=== PATIENT | male | born 1945 | race Caucasian/White ===

== ENCOUNTER 2017-07-05 14:51 | Emergency (ER) | payer OTHER ==
[~2017-07-05] VITALS: Ht 170.2 cm; Wt 79.5 kg
[2017-07-05 15:17] VITALS: BP 189/88; PULSE 63; RESP 16; TEMP 98.3; O2SAT 98
--- NOTE | 2017-07-05 16:40 | RADRPT ---
EXAM DATE/TIME: 07/05/2017 16:22 [place] COMPARISON: No previous studies available for comparison. INDICATIONS : Left patella pain post fall. MEDICAL HISTORY : None. SURGICAL HISTORY : None. ENCOUNTER: Initial ACUITY: 1 day PAIN SCORE: 7/10 LOCATION: Left knee FINDINGS: Four view examination of the left knee demonstrates no evidence of fracture or dislocation. Bony min eralization is normal. The articular surfaces are intact. The suprapatellar soft tissues have a nor mal configuration. CONCLUSION: Unremarkable examination of the left knee. Tad Pickett MD on July 05, 2017 at 16:38 Board Certified Radiologist. This report was verified electronically.
--- NOTE | 2017-07-05 16:49 | PD ---
HPI Chief Complaint: Fall Time Seen by Provider: 16:10 Travel History International Travel<30 days: No Contact w/Intl Traveler<30days: No Traveled to known affect area: No History of Present Illness HPI This is a 71-year-old male here for evaluation of left knee and right elbow pain after he had a mechanical trip and fall onto the concrete. No head injury or loss of consciousness. Patient is not anticoagulated. He has pain with weightbearing on the left knee and range of motion of the knee. Symptom severity is mild to moderate. Alleviated by rest. He denies headache, visual changes, neck pain, chest pain, shortness breath, abdominal pain, nausea, vomiting, paresthesia or weakness of the extremities. PFSH Past Medical History Arthritis: No Asthma: Yes (asthmatic bronchitis.) Autoimmune Disease: No Blood Disorders: No Anxiety: Yes Depression: Yes Heart Rhythm Problems: No Cancer: No Cardiovascular Problems: Yes (unknown specifics.) High Cholesterol: No Chemotherapy: No Chest Pain: No Congestive Heart Failure: No Cirrhosis: Yes COPD: No Cerebrovascular Accident: Yes (2004) Diabetes: No Diminished Hearing: No Diverticulitis: Yes Endocrine: No GERD: No Glaucoma: No Genitourinary: No Headaches: No Hepatitis: No Hiatal Hernia: No Hypertension: Yes Immune Disorder: No Insomnia: Yes Kidney Stones: No Musculoskeletal: Yes (MASSIVE PAINS ALL OVER BODY.) Neurologic: No Psychiatric: Yes (suicide attempt) Reproductive: No Respiratory: Yes Migraines: No Myocardial Infarction: No Pancreatitis: Yes Radiation Therapy: No Renal Failure: No Seizures: No Sickle Cell Disease: No Sleep Apnea: No Thyroid Disease: No Ulcer: No ?: Not Past Surgical History Abdominal Surgery: No AICD: No Appendectomy: No Cardiac Surgery: No Cholecystectomy: No Ear Surgery: No Endocrine Surgery: No Eye Surgery: No Genitourinary Surgery: No Gynecologic Surgery: No Insulin Pump: No Joint Replacement: No Oral Surgery: Yes Pacemaker: No Thoracic Surgery: No Tonsillectomy: Yes Other Surgery: Yes (Tonsils out when you were 11.) Social History Alcohol Use: No Tobacco Use: No Substance Use: Yes (PAST PSA) Allergies-Medications (Allergen,Severity, Reaction): Coded Allergies: No Known Allergies (Verified Adverse Reaction, Unknown, 07/05/17) Reported Meds & Prescriptions Reported Meds & Active Scripts Active No Active Prescriptions or Reported Medications Review of Systems Except as stated in HPI: all other systems reviewed are Neg General / Constitutional: No: Fever Eyes: No: Visual changes HENT: No: Headaches Cardiovascular: No: Chest Pain or Discomfort Respiratory: No: Shortness of Breath Gastrointestinal: No: Abdominal Pain Genitourinary: No: Dysuria Physical Exam Narrative GENERAL: Alert and well-appearing 71-year-old male SKIN: Warm and dry. No areas of ecchymosis or abrasion. HEAD: Normocephalic. Atraumatic EYES: No injection or drainage. NECK: Supple. No midline spine tenderness. CARDIOVASCULAR: Regular rate and rhythm. No chest wall tenderness RESPIRATORY: Breath sounds equal bilaterally. No accessory muscle use. GASTROINTESTINAL: Abdomen soft, non-tender, nondistended. MUSCULOSKELETAL: No cyanosis, or edema. Left lower extremity: Tenderness to the anterior aspect of the knee. Pain with full flexion. Joint is stable. 2+ distal pulses. Normal sensation. Brisk cap refill. Right upper extremity: The elbow is nontender. He is able to flex and extend the shoulder, elbow, wrist and all fingers. 2+ distal pulses. Normal sensation. Brisk cap refill. BACK: Nontender without obvious deformity. No CVA tenderness. Data Data Last Documented VS Vital Signs Date Time Temp Pulse Resp B/P (MAP) Pulse Ox O2 Delivery O2 Flow Rate FiO2 07/05/17 15:17 98.3 63 16 189/88 (121) 98 Orders Orders Knee, Complete (4vws) (07/05/17 ) [facility] Medical Decision Making Medical Screen Exam Complete: Yes Emergency Medical Condition: Yes Differential Diagnosis Contusion Versus fracture versus sprain Narrative Course 71-year-old male here for evaluation of left knee and right elbow pain after he fell from a standing positions. Extremities are neurovascularly intact. Left knee x-ray is negative. Patient be treated for contusion. Diagnosis Primary Impression: Contusion of left knee Qualified Codes: S80.02XA - Contusion of left knee, initial encounter Additional Impression: Contusion of right elbow Qualified Codes: S50.01XA - Contusion of right elbow, initial encounter Referrals: Primary Care Physician Additional Instructions: Ice and elevate the extremities. Tylenol or ibuprofen as needed for pain. Follow-up the primary doctor. Scripts No Active Prescriptions or Reported Meds Disposition: DISCHARGE HOME Condition: Stable [place] Jul 05, 2017 16:48
== END 2017-07-05 17:35 | disposition home or self-care (01) ==
LOC: PHEFT 14:51
DX: S80.02XA Contusion of left knee, initial encounter (principal); S50.01XA Contusion of right elbow, initial encounter; W01.0XXA Fall on same level from slipping, tripping and stumbling without subsequent striking against object, initial encounter; J45.909 Unspecified asthma, uncomplicated; F41.9 Anxiety disorder, unspecified; F32.9 Major depressive disorder, single episode, unspecified; K74.60 Unspecified cirrhosis of liver; I10 Essential (primary) hypertension; Z86.73 Personal history of transient ischemic attack (TIA), and cerebral infarction without residual deficits
CPT/HCPCS: 73564; 99283